=== PATIENT | male | born 1985 | race Caucasian/White ===

== ENCOUNTER 2018-12-18 20:59 | Emergency (ER) | payer BC, SELFPAY ==
[2018-12-18 21:00] VITALS: BP 161/87; PULSE 82; RESP 16; TEMP 36.8; O2SAT 98; BMI 44.5
[2018-12-18 21:33] LABS: Absolute Lymphocyte Count 2.64 X10^3/uL (0.83-4.51); Absolute Neutrophil Count 5.9 X10^3/uL (2.0-7.7); Basophil# 0.03 X10^3/uL; Basophil% 0.3 % (0-1); Eosinophils% 2.1 % (0-5); Hematocrit 42.9 % (40-54); Hemoglobin 14.8 g/dL (13.0-16.5); Lymphocyte # 2.64 X10^3/ul (4.0); Lymphocyte % 27.8 % (19-41); Mean Corp Hgb Conc 34.5 g/dL (32-36); Mean Corpuscular Hgb 29.6 pg (27.0-32.0); Mean Corpuscular Volume 85.8 fL (80-94); Mean Platelet Vol. 10.8 fl (6.2-12.0); Monocyte# 0.67 X10^3/uL; Monocyte% 7.1 % (0-10); NRBC Flagged by Analyzer 0 % (0-5); Neutrophil # 5.92 X10^3/uL (2.7-7.7); Neutrophil % 62.4 % (47-70); Platelet Count 305 K/mm3 (150-450); RBC Distribution Width CV 12.3 % (11.6-14.6); RBC Distribution Width SD 37.9 fl (35.1-43.9); White Blood Count 9.5 K/mm3 (4.4-11.0)
[2018-12-18 21:48] LABS: Anion Gap 4 (5-15); BUN 17 mg/dL (7-18); BUN/Creat Ratio 16.8 RATIO (10-20); Calcium,Total 9.1 mg/dL (8.5-10.1); Chloride 108 mmol/L (98-107); Creatinine, Serum 1.01 mg/dL (0.70-1.30); EST Glomerular Filtration Rate 91 mL/min (>60); Est Glom Filt Rate - Afr Amer 110 mL/min (>60); Estimated Creatinine Clearance 115.25 ml/min; Glucose 106 mg/dL (74-106); Potassium 3.9 mmol/L (3.5-5.1); Sodium Level 140 mmol/L (136-145)
--- NOTE | 2018-12-18 21:54 | RAD_ITS ---
STUDY: X-RAY CHEST REASON FOR EXAM: Male, 33 years old. Chest pain TECHNIQUE: 1 view COMPARISON: None. FINDINGS: The lungs are clear and expanded. There is no demonstrated pleural abnormality. Normal size heart. Normal mediastinum and alpa. Normal visualized pulmonary arteries. Normal visualized aortic arch and descending thoracic aorta. Normal visualized thoracic spine. Normal visualized ribs, clavicles, and shoulders. There is no demonstrated abnormality of the visualized soft tissue structures of the upper abdomen. RAD/Chest 1 View (Portable) IMPRESSION: Normal x-ray examination of the chest. Electronically Signed: Eliana Junior MD at 22:12 EDT , Service support ,
[2018-12-18] MEDS: Aspirin 81 MG TAB.CHEW 324 MG PO (22:25)
[2018-12-18 22:26] VITALS: BP 156/91; PULSE 90; RESP 20; O2SAT 98
[2018-12-18 23:00] VITALS: BP 158/98; PULSE 63; RESP 18; O2SAT 94
[2018-12-19] VITALS: BP 159/82; PULSE 67; RESP 18; O2SAT 98
--- NOTE | 2018-12-19 00:59 | ED.VISSUMM ---
- ER Visit Summary Date of Service: 12/19/18 Chief Complaint: Chest discomfort History of Present Illness: The patient is a 33 M with chest pain on and off for years. It seems to be getting worse recently. It was worse today in the morning. His discomfort is in his mid chest. Worse at night. Nothing else seems to make it worse. Today he noticed his blood pressure was high, 186/112 and he was sweaty over the right side of his body. No other associated symptoms. No history of heart disease, diabetes, hypertension, hyperlipidemia. Non-smoker. No history of PE or aortic disease. He had a headache earlier today but it has resolved. No neurologic symptoms otherwise. No history of aneurysm. Physical Examination: Afebrile and vital signs unremarkable. Blood pressure 156/91. Alert and oriented. No acute distress. Skin normal in color without diaphoresis or pallor. Heart regular rate and rhythm. Lungs clear. Pulses strong and equal. Abdomen soft and nontender. Test Results: EKG showed sinus rhythm at a rate of 84. No sign of acute ischemia or infarction pattern. CBC, metabolic panel, troponin normal. Chest x-ray normal. Emergency Department Course and Treatment: Patient treated with aspirin and placed on a monitor while awaiting results. He is PERC negative. No signs or symptoms of aortic disease. He is low risk for ACS. His work-up was unremarkable. We will perform a delta troponin. Oncoming doctor will check. Patient was advised that he is low risk but not no risk. He will still follow-up with cardiology as planned. Return right away for any new or worsening issues. Treatment Plan: As above Disposition: Discharge pending negative troponin Impression: 1. Chest pain This note was generated with [email or web address] dictation software. It may contain incorrect words, spelling, and punctuation that were not noted in review of the chart prior to signing ED Disposition - Plan for ED Patient: Referrals: Care Physician,No Primary [Primary Care Provider] -
--- NOTE | 2018-12-19 01:03 | ED.DEP ---
ED Disposition - Plan for ED Patient: Instructions: CHEST PAIN, Uncertain Cause Referrals: Corey Tapia MD [STAFF PHYSICIAN] -
[2018-12-19 01:09] VITALS: BP 143/64; PULSE 71; RESP 17; O2SAT 94
--- NOTE | 2018-12-19 01:12 | EKG12_ITS ---
Test Reason : CP Blood Pressure : / mmHG Vent. Rate : 084 BPM Atrial Rate : 084 BPM P-R Int : 148 ms QRS Dur : 086 ms QT Int : 354 ms P-R-T Axes : 021 026 005 degrees QTc Int : 418 ms Normal sinus rhythm Normal ECG Confirmed by ABNER RUIZ, NASH ([id number]), web content editor LEANN LOPEZ ([id number]) on 12/20/2018 11:47:25 AM Referred By: DR NAVAS Confirmed By:CHANTALE LEVINE MD
== END 2018-12-19 01:10 | disposition home or self-care (01) ==
LOC: ED 21:49
PROVIDERS: Emergency Provider Emergency Medicine
DX: R07.89 Other chest pain (principal)
CPT/HCPCS: 71045; 80048; 84484; 85025; 93005; 99284; A4216